=== PATIENT | female | born 1995 | race Caucasian/White ===

== ENCOUNTER 2018-02-23 15:16 | Inpatient (IN) | payer OTHER ==
[2018-02-23 15:19] VITALS: BMI 23.1
--- NOTE | 2018-02-23 18:35 | HP ---
COWS - Scale Resting Pulse: 1= [place] 81-100 Sweatin= Chills/Flushing Restless Observation: 1= Difficult to Sit Still Pupil Size: 0= Normal to Room Light Bone or Joint Aches: 2= Severe Diffuse Aches Runny Nose/ Eye Tearin= Runny Nose/Eyes GI Upset > 30mins: 2= Nausea/Diarrhea Tremor Observation: 2= Slight Tremor Visible Yawning Observation: 1= 1-2x During Session Anxiety or Irritability: 2=Irritable/Anxious Goose Flesh Skin: 3=Piloerection COWS Score: 17 Admission ROS BHS - HPI Chief Complaint: I'm here because Im tired and I want to stop doing this stuff over and over again. Allergies/Adverse Reactions: Allergies Allergy/AdvReac Type Severity Reaction Status Date / Time Penicillins Allergy Hives Verified 02/23/18 18:50 History of Present Illness: 22 year old female with heroine and benzodiazepine dependence presents for detox. This is her first treatment at [facility]. Her last detox was last month at [facility] Exam Limitations: No Limitations - Ebola screening Have you traveled outside of the country in the last 21 days: No (N) Have you had contact with anyone from an Ebola affected area: No Have you been sick,other than usual withdrawal symptoms: No Do you have a fever: No - Review of Systems Constitutional: Chills, Loss of Appetite EENT: reports: Nose Congestion Respiratory: reports: Cough (smoke related) Cardiac: reports: No Symptoms Reported GI: reports: Nausea, Poor Appetite, Poor Fluid Intake, Abdominal cramping : reports: No Symptoms Reported Musculoskeletal: reports: Back Pain, Joint Pain, Muscle Pain Integumentary: reports: No Symptoms Reported Neuro: reports: Headache, Tremors Endocrine: reports: No Symptoms Reported Hematology: reports: No Symptoms Reported Psychiatric: reports: Anxious, Depressed Other Systems: Reviewed and Negative Patient History - Patient Medical History Hx Anemia: No Hx Asthma: No Hx Chronic Obstructive Pulmonary Disease (COPD): No Hx Cancer: No Hx Cardiac Disorders: No Hx Congestive Heart Failure: No Hx Hypertension: No Hx Hypercholesterolemia: No Hx Pacemaker: No HX Cerebrovascular Accident: No Hx Seizures: No Hx Dementia: No Hx Diabetes: No Hx Gastrointestinal Disorders: No Hx Liver Disease: No Hx Genitourinary Disorders: No Hx Sexually Transmitted Disorders: No Hx Renal Disease (ESRD): No Hx Thyroid Disease: No Hx Human Immunodeficiency Virus (HIV): No Hx Hepatitis C: No Hx Depression: Yes Hx Suicide Attempt: Yes (6 yrs ago) Hx Bipolar Disorder: No Hx Schizophrenia: No - Patient Surgical History Past Surgical History: No - PPD History Previous Implant?: Yes Documented Results: Negative w/o proof Implanted On Prior R Admission?: No PPD to be Administered?: Yes - Reproductive History Patient is a Female of Child Bearing Age (11 -55 yrs old): Yes Last Menstrual Period: 01/02/18 LMP comment: Reports irregular cycle Patient : No - Smoking Cessation Smoking history: Current every day smoker Have you smoked in the past 12 months: Yes Aproximately how many cigarettes per day: 12 Hx Chewing Tobacco Use: No Initiated information on smoking cessation: Yes 'Breaking Loose' booklet given: 02/23/18 - Substance & Tx. History Hx Alcohol Use: No Substance Use Type: Cocaine, Heroin, Tranquilizers - Substances Abused Alprazolam (Xanax) Route: Oral Frequency: Daily Amount used: 6mg Age of first use: 17 Date of Last Use: 02/22/18 Heroin Route: Injection Frequency: Daily Amount used: 2 grams Age of first use: 17 Date of Last Use: 02/22/18 Cocaine Route: Injection Frequency: 3-6 times per week Amount used: 1 gram Age of first use: 17 Date of Last Use: 02/17/18 Family Disease History - Family Disease History Family Disease History: Other: Father (alcoholic) Admission Physical Exam BHS - Vital Signs Vital Signs: Vital Signs - 24 hr 02/23/18 15:18 Temperature 98.1 F Pulse Rate 81 Respiratory 18 Rate Blood Pressure 118/67 - Physical General Appearance: Yes: No Apparent Distress, Sweating, Anxious HEENTM: Yes: Nasal Congestion, Other (missing one tooth) Respiratory: Yes: Chest Non-Tender, Lungs Clear, Normal Breath Sounds, No Respiratory Distress, No Accessory Muscle Use Neck: Yes: No masses,lesions,Nodules, Supple Breast: Yes: Breast Exam Deferred Cardiology: Yes: Regular Rate, S1, S2 Abdominal: Yes: Normal Bowel Sounds, Non Tender, Soft Genitourinary: Yes: Within Normal Limits Back: Yes: Normal Inspection Musculoskeletal: Yes: full range of Motion, Muscle Pain Extremities: Yes: Tremors Neurological: Yes: Normal Mood/Affect, Normal Response Integumentary: Yes: Track Ricci (both arms and neck) Lymphatic: Yes: Within Normal Limits - Diagnostic (1) Heroin dependence Current Visit: Yes Status: Acute (2) Tranquilizer abuse Current Visit: Yes Status: Acute (3) Nicotine dependence Current Visit: Yes Status: Acute Qualifiers: Nicotine product type: cigarettes Substance use status: uncomplicated Qualified Code(s): F17.210 - Nicotine dependence, cigarettes, uncomplicated (4) Cocaine abuse Current Visit: Yes Status: Acute Cleared for Admission [facility] - Detox or Rehab [facility] Level of Care: Medically Managed Detox Regimen/Protocol: Methadone/Valium S Breath Alcohol Content Breath Alcohol Content: 0 Urine Pregancy Test - Result Urine Test Results: Negative- NO Line Present Urine Drug Screen - Results Drug Screen Negative: No Urine Drug Screen Results: OPI-Opiates, BZO-Benzodiazepines, MTD-Methadone, TCA- Tricyclic Antidepress
[2018-02-23] MEDS ORDERED: ACETAMINOPHEN 325 MG TABLET (FP) PO PRN (18:51)
[2018-02-23] MEDS ORDERED: LOPERAMIDE HCL 2 MG CAPSULE PO PRN (18:51)
[2018-02-23] MEDS ORDERED: diazePAM 5 MG TABLET PO ONE (18:51)
[2018-02-23] MEDS ORDERED: P-EPHED 60MG/TRIPROLIDI 2.5MG TABLET PO PRN (18:51)
[2018-02-23] MEDS ORDERED: MAGNESIUM CITRATE 300 ML BOTTLE PO PRN (18:51)
[2018-02-23] MEDS ORDERED: METHADONE HCL 10 MG TABLET (FOR DETOX USE ONLY) PO ONE ×2 (18:51→23:00)
[2018-02-23] MEDS ORDERED: MAG HYDROX/AL HYDROX/SIMETH 30 ML UNIT-DOSE CUP PO PRN (18:51)
[2018-02-23] MEDS ORDERED: MENTHOL/PHENOL 1 EACH UD MM PRN (18:51)
[2018-02-23] MEDS ORDERED: MAGNESIUM HYDROX 2400MG/30ML ORAL SUSPENSION 30 ML CUP PO PRN (18:51)
[2018-02-23] MEDS ORDERED: guaiFENesin/D-METHORPHAN HB 10 ML UNIT-DOSE CUPS PO PRN (18:51)
[2018-02-23] MEDS ORDERED: IBUPROFEN 400 MG TABLET (FP) PO PRN (18:51)
[2018-02-23] MEDS ORDERED: METHADONE HCL 10 MG TABLET (FOR DETOX USE ONLY) ONE (21:08)
[2018-02-23] MEDS: THIAMINE HCL 100 MG TABLET (FP) PO SCH (21:13)
[2018-02-23] MEDS: NICOTINE 14 MG/24 HOURS TOPICAL PATCH TD SCH (21:23)
[2018-02-23] MEDS: diazePAM 5 MG TABLET PO SCH (22:48)
[2018-02-23 23:23] LABS: URINE APPEARANCE SLCLOUDY; URINE BILIRUBIN NEGATIVE (<2.0 mg/dL); URINE BLOOD NEGATIVE (NEGATIVE); URINE COLOR YELLOW; URINE GLUCOSE (UA) NEGATIVE (NEGATIVE); URINE KETONE NEGATIVE (NEGATIVE); URINE NITRITE NEGATIVE (NEGATIVE); URINE PROTEIN NEGATIVE (NEGATIVE); URINE UROBILINOGEN NEGATIVE mg/dL (0.2-1.0)
[2018-02-23 23:25] LABS: URINE LEUK ESTERASE 2+ (NEGATIVE)
[2018-02-23 23:30] LABS: EPI CELLS MANY /HPF (FEW); URINE MUCUS RARE
[2018-02-24] MEDS: diazePAM 5 MG TABLET PO SCH ×3 (05:52→22:04)
--- NOTE | 2018-02-24 09:22 | EKG ---
Test Reason : Blood Pressure : / mmHG Vent. Rate : 070 BPM Atrial Rate : 070 BPM P-R Int : 126 ms QRS Dur : 086 ms QT Int : 410 ms P-R-T Axes : 032 072 053 degrees QTc Int : 442 ms NORMAL SINUS RHYTHM NORMAL ECG NO PREVIOUS ECGS AVAILABLE Confirmed by AMAIRANI MORALES, DENIZ ([id number]) on 02/24/2018 9:22:19 AM Referred By: Confirmed By:DENIZ BALES MD
[2018-02-24 09:56] LABS: HEMATOCRIT 37.9 % (32.4-45.2); HEMOGLOBIN 12.7 GM/dL (10.7-15.3); MCH 29.4 pg (25.7-33.7); MCHC 33.6 g/dl (32.0-36.0); MEAN CELL VOLUME 87.5 fl (80-96); MEAN PLT VOLUME 7.5 fl (7.5-11.1); PLATELET COUNT 322 K/MM3 (134-434); RBC 4.34 M/mm3 (3.60-5.2); RDW 13.2 % (11.6-15.6); WHITE BLOOD COUNT 7.9 K/mm3 (4.0-10.0)
[2018-02-24] MEDS ORDERED: METHADONE HCL 10 MG TABLET (FOR DETOX USE ONLY) PO SCH (10:00)
[2018-02-24 10:05] LABS: CHLORIDE 104 mmol/L (98-107); POTASSIUM 4.2 mmol/L (3.5-5.1); SODIUM 139 mmol/L (136-145)
[2018-02-24 10:13] LABS: ALBUMIN 3.4 g/dl (3.4-5.0); ALK PHOS 97 U/L (45-117); ANION GAP 6 (8-16); BILIRUBIN,TOTAL 0.1 mg/dL (0.2-1.0); BLOOD UREA NITROGEN 11 mg/dL (7-18); CALCIUM 8.5 mg/dL (8.5-10.1); CO2 29 mmol/L (21-32); CREATININE 0.7 mg/dL (0.55-1.02); GLUCOSE,RANDOM 98 mg/dL (74-106); SGOT/AST 140 U/L (15-37); SGPT/ALT 176 U/L (12-78); TOT PROT 6.6 g/dl (6.4-8.2)
[2018-02-24] MEDS: PRENATAL VITAMINS W/ FOLIC ACID TABLET (FP) PO SCH (10:13)
[2018-02-24] MEDS: NICOTINE 14 MG/24 HOURS TOPICAL PATCH TD SCH (10:14)
[2018-02-24] MEDS: diazePAM 5 MG TABLET PO PRN ×3 (10:15→21:23)
[2018-02-24] MEDS: NICOTINE POLACRILEX 2 MG GUM BC PRN ×2 (10:17→12:47)
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
--- NOTE | 2018-02-24 13:58 | PN ---
S COWS - Scale Resting Pulse: 0= [place] 80 or Below Sweatin= Chills/Flushing Restless Observation: 1= Difficult to Sit Still Pupil Size: 1= Pupils >than Normal Bone or Joint Aches: 2= Severe Diffuse Aches Runny Nose/ Eye Tearin= Nasal Congestion GI Upset > 30mins: 2= Nausea/Diarrhea Tremor Observation of Outstretched Hands: 1= Tremor Newcomb, Not Seen Yawning Observation: 2= >3x During Session Anxiety or Irritability: 2=Irritable/Anxious Goose Flesh Skin: 3=Piloerection COWS Score: 16 S Progress Note (SOAP) Subjective: joint pain muscle ache sweat tremor restlessness anxiety Objective: 02/24/18 13:59 Vital Signs Temperature 96.4 F L 02/24/18 09:50 Pulse Rate 66 02/24/18 09:50 Respiratory Rate 18 02/24/18 09:50 Blood Pressure 103/59 02/24/18 09:50 O2 Sat by Pulse Oximetry (%) Laboratory Last Values WBC 7.9 K/mm3 (4.0-10.0) 02/24/18 07:30 RBC 4.34 M/mm3 (3.60-5.2) 02/24/18 07:30 Hgb 12.7 GM/dL (10.7-15.3) 02/24/18 07:30 Hct 37.9 % (32.4-45.2) 02/24/18 07:30 MCV 87.5 fl (80-96) 02/24/18 07:30 MCH 29.4 pg (25.7-33.7) 02/24/18 07:30 MCHC 33.6 g/dl (32.0-36.0) 02/24/18 07:30 RDW 13.2 % (11.6-15.6) 02/24/18 07:30 Plt Count 322 K/MM3 (134-434) 02/24/18 07:30 MPV 7.5 fl (7.5-11.1) 02/24/18 07:30 Sodium 139 mmol/L (136-145) 02/24/18 07:30 Potassium 4.2 mmol/L (3.5-5.1) 02/24/18 07:30 Chloride 104 mmol/L (98-107) 02/24/18 07:30 Carbon Dioxide 29 mmol/L (21-32) 02/24/18 07:30 Anion Gap 6 (8-16) L 02/24/18 07:30 BUN 11 mg/dL (7-18) 02/24/18 07:30 Creatinine 0.7 mg/dL (0.55-1.02) 02/24/18 07:30 Creat Clearance w eGFR > 60 (>60) 02/24/18 07:30 Random Glucose 98 mg/dL (74-106) 02/24/18 07:30 Calcium 8.5 mg/dL (8.5-10.1) 02/24/18 07:30 Total Bilirubin 0.1 mg/dL (0.2-1.0) L 02/24/18 07:30 AST 140 U/L (15-37) H 02/24/18 07:30 ALT 176 U/L (12-78) H 02/24/18 07:30 Alkaline Phosphatase 97 U/L (45-117) 02/24/18 07:30 Total Protein 6.6 g/dl (6.4-8.2) 02/24/18 07:30 Albumin 3.4 g/dl (3.4-5.0) 02/24/18 07:30 Urine Color Yellow 02/23/18 21:00 Urine Appearance Slcloudy 02/23/18 21:00 Urine pH 7.0 (5.0-8.0) 02/23/18 21:00 Ur Specific [place] 1.021 (1.001-1.035) 02/23/18 21:00 Urine Protein Negative (NEGATIVE) 02/23/18 21:00 Urine Glucose (UA) Negative (NEGATIVE) 02/23/18 21:00 Urine Ketones Negative (NEGATIVE) 02/23/18 21:00 Urine Blood Negative (NEGATIVE) 02/23/18 21:00 Urine Nitrite Negative (NEGATIVE) 02/23/18 21:00 Urine Bilirubin Negative (<2.0 mg/dL) 02/23/18 21:00 Urine Urobilinogen Negative mg/dL (0.2-1.0) 02/23/18 21:00 Ur Leukocyte Esterase 2+ (NEGATIVE) H 02/23/18 21:00 Urine WBC (Auto) 101 /hpf (3-5) 02/23/18 21:00 Urine RBC (Auto) 16 /hpf (0-3) 02/23/18 21:00 Ur Epithelial Cells Many /HPF (FEW) 02/23/18 21:00 Urine Mucus Rare 02/23/18 21:00 RPR Titer Nonreactive (NONREACTIVE) 02/24/18 07:30 HIV 1&2 Antibody Screen Negative 02/24/18 07:30 HIV P24 Antigen Negative 02/24/18 07:30 Assessment: 02/24/18 14:02 withdrawal sx Plan: continue detox
[2018-02-24] MEDS: QUEtiapine FUMARATE 100 MG TABLET (FP) PO SCH (22:04)
[2018-02-24] MEDS: THIAMINE HCL 100 MG TABLET (FP) PO SCH (22:04)
[2018-02-25] MEDS: diazePAM 5 MG TABLET PO PRN ×3 (05:29→18:22)
--- NOTE | 2018-02-25 09:38 | PN ---
S CIWA - CIWA Score Nausea/Vomitin Muscle Tremors: 3 Anxiety: 3 Agitation: 3 Paroxysmal Sweats: 1-Minimal Palms Moist Orientation: 0-Oriented Tacttile Disturbances: 1-Very Mild Itch/Numbness Auditory Disturbances: 1-Very Mild Visual Disturbances: 0-None Headache: 2-Mild CIWA-Ar Total Score: 17 BHS COWS - Scale Resting Pulse: 0= [place] 80 or Below Sweatin= Chills/Flushing Restless Observation: 3= Extraneous Movement Pupil Size: 1= Pupils >than Normal Bone or Joint Aches: 2= Severe Diffuse Aches Runny Nose/ Eye Tearin= Runny Nose/Eyes GI Upset > 30mins: 2= Nausea/Diarrhea Tremor Observation of Outstretched Hands: 2= Slight Tremor Visible Yawning Observation: 2= >3x During Session Anxiety or Irritability: 2=Irritable/Anxious Goose Flesh Skin: 0=Smooth Skin COWS Score: 17 S Progress Note (SOAP) Subjective: ALERT,IRRITABLE,ANXIOUS,INTERRUPTED SLEEP,TREMOR,PAIN IN THE BOSY AND BACK Objective: 02/25/18 09:36 Vital Signs Temperature 97.2 F L 02/25/18 06:09 Pulse Rate 55 L 02/25/18 06:09 Respiratory Rate 16 02/25/18 06:09 Blood Pressure 102/56 02/25/18 06:09 O2 Sat by Pulse Oximetry (%) 02/25/18 09:37 Laboratory Last Values WBC 7.9 K/mm3 (4.0-10.0) 02/24/18 07:30 RBC 4.34 M/mm3 (3.60-5.2) 02/24/18 07:30 Hgb 12.7 GM/dL (10.7-15.3) 02/24/18 07:30 Hct 37.9 % (32.4-45.2) 02/24/18 07:30 MCV 87.5 fl (80-96) 02/24/18 07:30 MCH 29.4 pg (25.7-33.7) 02/24/18 07:30 MCHC 33.6 g/dl (32.0-36.0) 02/24/18 07:30 RDW 13.2 % (11.6-15.6) 02/24/18 07:30 Plt Count 322 K/MM3 (134-434) 02/24/18 07:30 MPV 7.5 fl (7.5-11.1) 02/24/18 07:30 Sodium 139 mmol/L (136-145) 02/24/18 07:30 Potassium 4.2 mmol/L (3.5-5.1) 02/24/18 07:30 Chloride 104 mmol/L (98-107) 02/24/18 07:30 Carbon Dioxide 29 mmol/L (21-32) 02/24/18 07:30 Anion Gap 6 (8-16) L 02/24/18 07:30 BUN 11 mg/dL (7-18) 02/24/18 07:30 Creatinine 0.7 mg/dL (0.55-1.02) 02/24/18 07:30 Creat Clearance w eGFR > 60 (>60) 02/24/18 07:30 Random Glucose 98 mg/dL (74-106) 02/24/18 07:30 Calcium 8.5 mg/dL (8.5-10.1) 02/24/18 07:30 Total Bilirubin 0.1 mg/dL (0.2-1.0) L 02/24/18 07:30 AST 140 U/L (15-37) H 02/24/18 07:30 ALT 176 U/L (12-78) H 02/24/18 07:30 Alkaline Phosphatase 97 U/L (45-117) 02/24/18 07:30 Total Protein 6.6 g/dl (6.4-8.2) 02/24/18 07:30 Albumin 3.4 g/dl (3.4-5.0) 02/24/18 07:30 Urine Color Yellow 02/23/18 21:00 Urine Appearance Slcloudy 02/23/18 21:00 Urine pH 7.0 (5.0-8.0) 02/23/18 21:00 Ur Specific [place] 1.021 (1.001-1.035) 02/23/18 21:00 Urine Protein Negative (NEGATIVE) 02/23/18 21:00 Urine Glucose (UA) Negative (NEGATIVE) 02/23/18 21:00 Urine Ketones Negative (NEGATIVE) 02/23/18 21:00 Urine Blood Negative (NEGATIVE) 02/23/18 21:00 Urine Nitrite Negative (NEGATIVE) 02/23/18 21:00 Urine Bilirubin Negative (<2.0 mg/dL) 02/23/18 21:00 Urine Urobilinogen Negative mg/dL (0.2-1.0) 02/23/18 21:00 Ur Leukocyte Esterase 2+ (NEGATIVE) H 02/23/18 21:00 Urine WBC (Auto) 101 /hpf (3-5) 02/23/18 21:00 Urine RBC (Auto) 16 /hpf (0-3) 02/23/18 21:00 Ur Epithelial Cells Many /HPF (FEW) 02/23/18 21:00 Urine Mucus Rare 02/23/18 21:00 RPR Titer Nonreactive (NONREACTIVE) 02/24/18 07:30 HIV 1&2 Antibody Screen Negative 02/24/18 07:30 HIV P24 Antigen Negative 02/24/18 07:30 Assessment: 02/25/18 09:37 WITHDRAWAL SYMPTOM Plan: CONTINUE DETOX,REPEAT UA AND URINE FOR C/S R/O UTI
[2018-02-25] MEDS: PRENATAL VITAMINS W/ FOLIC ACID TABLET (FP) PO SCH (10:12)
[2018-02-25] MEDS: diazePAM 5 MG TABLET PO SCH ×2 (10:13→22:11)
[2018-02-25] MEDS: NICOTINE 14 MG/24 HOURS TOPICAL PATCH TD SCH (10:13)
[2018-02-25] MEDS: METHADONE HCL 5 MG TABLET (FOR DETOX USE ONLY) PO SCH (10:13)
[2018-02-25] MEDS: NICOTINE POLACRILEX 2 MG GUM BC PRN (10:17)
[2018-02-25 16:37] LABS: URINE APPEARANCE SLCLOUDY; URINE BILIRUBIN NEGATIVE (<2.0 mg/dL); URINE BLOOD NEGATIVE (NEGATIVE); URINE COLOR YELLOW; URINE GLUCOSE (UA) NEGATIVE (NEGATIVE); URINE KETONE NEGATIVE (NEGATIVE); URINE NITRITE NEGATIVE (NEGATIVE); URINE PROTEIN NEGATIVE (NEGATIVE); URINE UROBILINOGEN NEGATIVE mg/dL (0.2-1.0)
[2018-02-25 16:57] LABS: URINE LEUK ESTERASE 3+ (NEGATIVE)
[2018-02-25 17:00] LABS: EPI CELLS RARE /HPF (FEW); URINE BACTERIA RARE /hpf (NONE SEEN); URINE HYALINE CAST 2 /lpf; URINE MUCUS RARE
[2018-02-25] MEDS: QUEtiapine FUMARATE 100 MG TABLET (FP) PO SCH (22:11)
[2018-02-25] MEDS: THIAMINE HCL 100 MG TABLET (FP) PO SCH (22:13)
[2018-02-26] MEDS: diazePAM 5 MG TABLET PO PRN ×3 (08:47→17:09)
--- NOTE | 2018-02-26 09:36 | PN ---
S Progress Note (SOAP) Subjective: ALERT,IRRITABLE,ANXIOUS,INTERRUPTED SLEEP,PAIN IN THE BODY Objective: 02/26/18 09:32 Vital Signs Temperature 98.1 F 02/26/18 06:11 Pulse Rate 66 02/26/18 06:11 Respiratory Rate 16 02/26/18 06:11 Blood Pressure 112/65 02/26/18 06:11 O2 Sat by Pulse Oximetry (%) 02/26/18 09:33 Laboratory Last Values WBC 7.9 K/mm3 (4.0-10.0) 02/24/18 07:30 RBC 4.34 M/mm3 (3.60-5.2) 02/24/18 07:30 Hgb 12.7 GM/dL (10.7-15.3) 02/24/18 07:30 Hct 37.9 % (32.4-45.2) 02/24/18 07:30 MCV 87.5 fl (80-96) 02/24/18 07:30 MCH 29.4 pg (25.7-33.7) 02/24/18 07:30 MCHC 33.6 g/dl (32.0-36.0) 02/24/18 07:30 RDW 13.2 % (11.6-15.6) 02/24/18 07:30 Plt Count 322 K/MM3 (134-434) 02/24/18 07:30 MPV 7.5 fl (7.5-11.1) 02/24/18 07:30 Sodium 139 mmol/L (136-145) 02/24/18 07:30 Potassium 4.2 mmol/L (3.5-5.1) 02/24/18 07:30 Chloride 104 mmol/L (98-107) 02/24/18 07:30 Carbon Dioxide 29 mmol/L (21-32) 02/24/18 07:30 Anion Gap 6 (8-16) L 02/24/18 07:30 BUN 11 mg/dL (7-18) 02/24/18 07:30 Creatinine 0.7 mg/dL (0.55-1.02) 02/24/18 07:30 Creat Clearance w eGFR > 60 (>60) 02/24/18 07:30 Random Glucose 98 mg/dL (74-106) 02/24/18 07:30 Calcium 8.5 mg/dL (8.5-10.1) 02/24/18 07:30 Total Bilirubin 0.1 mg/dL (0.2-1.0) L 02/24/18 07:30 AST 140 U/L (15-37) H 02/24/18 07:30 ALT 176 U/L (12-78) H 02/24/18 07:30 Alkaline Phosphatase 97 U/L (45-117) 02/24/18 07:30 Total Protein 6.6 g/dl (6.4-8.2) 02/24/18 07:30 Albumin 3.4 g/dl (3.4-5.0) 02/24/18 07:30 Urine Color Yellow 02/25/18 11:30 Urine Appearance Slcloudy 02/25/18 11:30 Urine pH 6.0 (5.0-8.0) 02/25/18 11:30 Ur Specific [place] 1.019 (1.001-1.035) 02/25/18 11:30 Urine Protein Negative (NEGATIVE) 02/25/18 11:30 Urine Glucose (UA) Negative (NEGATIVE) 02/25/18 11:30 Urine Ketones Negative (NEGATIVE) 02/25/18 11:30 Urine Blood Negative (NEGATIVE) 02/25/18 11:30 Urine Nitrite Negative (NEGATIVE) 02/25/18 11:30 Urine Bilirubin Negative (<2.0 mg/dL) 02/25/18 11:30 Urine Urobilinogen Negative mg/dL (0.2-1.0) 02/25/18 11:30 Ur Leukocyte Esterase 3+ (NEGATIVE) H 02/25/18 11:30 Urine WBC (Auto) 57 /hpf (3-5) 02/25/18 11:30 Urine RBC (Auto) 13 /hpf (0-3) 02/25/18 11:30 Ur Epithelial Cells Rare /HPF (FEW) 02/25/18 11:30 Urine Bacteria Rare /hpf (NONE SEEN) 02/25/18 11:30 Hyaline Casts 2 /lpf 02/25/18 11:30 Urine Mucus Rare 02/25/18 11:30 RPR Titer Nonreactive (NONREACTIVE) 02/24/18 07:30 HIV 1&2 Antibody Screen Negative 02/24/18 07:30 HIV P24 Antigen Negative 02/24/18 07:30 Laboratory Results - last 24 hr 02/25/18 11:30 Urine Color Yellow Urine Appearance Slcloudy Urine pH 6.0 Ur Specific [place] 1.019 Urine Protein Negative Urine Glucose (UA) Negative Urine Ketones Negative Urine Blood Negative Urine Nitrite Negative Urine Bilirubin Negative Urine Urobilinogen Negative Ur Leukocyte Esterase 3+ H Urine WBC (Auto) 57 Urine RBC (Auto) 13 Ur Epithelial Cells Rare Urine Bacteria Rare Hyaline Casts 2 Urine Mucus Rare Assessment: 02/26/18 09:35 WITHDRAWAL SYMPTOM Plan: CONTINUE DETOX,BACTRIM DS 1 TAB PO BID FOR 7 DAYS FOR UTI,URINE FOR S/C PENDING
[2018-02-26] MEDS ORDERED: SULFAMETHOXAZOLE/TRIMETHOPRIM 800MG/160MG D.S. TABLET PO SCH (10:00)
[2018-02-26] MEDS: METHADONE HCL 5 MG TABLET (FOR DETOX USE ONLY) PO SCH (10:08)
[2018-02-26] MEDS: PRENATAL VITAMINS W/ FOLIC ACID TABLET (FP) PO SCH (10:08)
[2018-02-26] MEDS: diazePAM 5 MG TABLET PO SCH ×2 (10:09→22:07)
[2018-02-26] MEDS: NICOTINE 14 MG/24 HOURS TOPICAL PATCH TD SCH (12:20)
[2018-02-26] MEDS: NICOTINE POLACRILEX 2 MG GUM BC PRN ×4 (12:57→21:35)
--- NOTE | 2018-02-26 13:41 | PN ---
[facility] Progress Note Note: PATIENT STATED THAT SHE IS ALLERGIC TO AMOXICILLIN,ANTIBIOTIC WITH MYCIN, CLINDAMYCIN,PENICILLIN AND BACRIM AND FOR GOT TO TELL THE STAFF GOT ONE DOSE OF BACTRIM DS THIS MORNING HAS LOCAIZIED RASH OVER THE RIGHT WRIST EXPLAINED TO PATIENT FOR THE IMPORTANT OF NOTIFIED THE STAFF OF THE ALLERGY D/C BACTRIM URINE FOR C/S PENDING PATIENT WOULD LIKE TO START ON ANTIBIOTICS DURING WAITING AGREED TO BE ON LEVAQUIN 500 MGS PO DAILY FOR 7 DASY HYDROCOTISONE CREAM RIGHT WRIST BID FRANKLYN CRUZ MONITORING NO SWELLING OF FACE,NO PROBLEM WITH BREATHING,AMBULATION OK,NO SWELLING OF FACE AND LIP
[2018-02-26 16:51] LABS: URINE APPEARANCE CLOUDY; URINE BILIRUBIN NEGATIVE (<2.0 mg/dL); URINE BLOOD NEGATIVE (NEGATIVE); URINE COLOR YELLOW; URINE GLUCOSE (UA) NEGATIVE (NEGATIVE); URINE KETONE NEGATIVE (NEGATIVE); URINE NITRITE NEGATIVE (NEGATIVE); URINE PROTEIN NEGATIVE (NEGATIVE); URINE UROBILINOGEN NEGATIVE mg/dL (0.2-1.0)
[2018-02-26 17:36] LABS: URINE LEUK ESTERASE 3+ (NEGATIVE)
[2018-02-26 18:08] LABS: EPI CELLS FEW /HPF (FEW); URINE BACTERIA RARE /hpf (NONE SEEN); URINE MUCUS RARE
[2018-02-26] MEDS: THIAMINE HCL 100 MG TABLET (FP) PO SCH (22:07)
[2018-02-26] MEDS: MELATONIN 5 MG TABLETS PO PRN (22:07)
[2018-02-26] MEDS: QUEtiapine FUMARATE 100 MG TABLET (FP) PO SCH (22:07)
[2018-02-26] MEDS: HYDROCORTISONE 0.5% TOPICAL CREAM 30 GM TUBE TP SCH (23:35)
--- NOTE | 2018-02-27 08:53 | PN ---
S Progress Note (SOAP) Subjective: ALERT,IRRITABLE,INTERRUPTED SLEEP,RASH RIGHT WRIST ALMOST SUBSIDED Objective: 02/27/18 08:52 Vital Signs Temperature 97.0 F L 02/27/18 05:58 Pulse Rate 68 02/27/18 05:58 Respiratory Rate 18 02/27/18 05:58 Blood Pressure 110/61 02/27/18 05:58 O2 Sat by Pulse Oximetry (%) Laboratory Results - last 24 hr 02/26/18 10:00 Urine Color Yellow Urine Appearance Cloudy Urine pH 5.0 Ur Specific [place] 1.016 Urine Protein Negative Urine Glucose (UA) Negative Urine Ketones Negative Urine Blood Negative Urine Nitrite Negative Urine Bilirubin Negative Urine Urobilinogen Negative Ur Leukocyte Esterase 3+ H Urine WBC (Auto) 83 Urine RBC (Auto) 60 Ur Epithelial Cells Few Urine Bacteria Rare Urine Mucus Rare 02/27/18 08:54 URINE FOR C/S NO GROWTH Assessment: 02/27/18 08:55 WITHDRAWAL SYMPTOM Plan: CONTINUE DETOX,DISCHARGE IN AM,WILL CONTINUE LEVAQUIN 500 MGS PO DAILY FOR 5 MORE DAYS
[2018-02-27] MEDS ORDERED: METHADONE HCL 10 MG TABLET (FOR DETOX USE ONLY) PO SCH (10:00)
[2018-02-27] MEDS ORDERED: diazePAM 5 MG TABLET PO SCH (10:00)
[2018-02-27] MEDS: HYDROCORTISONE 0.5% TOPICAL CREAM 30 GM TUBE TP SCH ×2 (10:07→22:09)
[2018-02-27] MEDS: PRENATAL VITAMINS W/ FOLIC ACID TABLET (FP) PO SCH (10:07)
[2018-02-27] MEDS: NICOTINE POLACRILEX 2 MG GUM BC PRN ×2 (10:08→14:46)
[2018-02-27] MEDS: NICOTINE 14 MG/24 HOURS TOPICAL PATCH TD SCH (10:08)
[2018-02-27] MEDS: hydrOXYzine PAMOATE 50 MG CAPSULE (FP) PO PRN ×2 (14:46→20:18)
[2018-02-27] MEDS: QUEtiapine FUMARATE 100 MG TABLET (FP) PO SCH (22:09)
[2018-02-27] MEDS: MELATONIN 5 MG TABLETS PO PRN (22:10)
[2018-02-27] MEDS: THIAMINE HCL 100 MG TABLET (FP) PO SCH (22:11)
[2018-02-28] MEDS ORDERED: METHADONE HCL 5 MG TABLET (FOR DETOX USE ONLY) PO SCH (06:00)
[2018-02-28 06:06] VITALS: BP 109/64; PULSE 84; TEMP 97.7
[2018-02-28] MEDS: NICOTINE POLACRILEX 2 MG GUM BC PRN ×2 (08:14→11:16)
--- NOTE | 2018-02-28 08:47 | PN ---
S Progress Note (SOAP) Subjective: ALERT,NO COMPLAINT Objective: 02/28/18 08:46 Vital Signs Temperature 97.7 F 02/28/18 06:00 Pulse Rate 84 02/28/18 06:00 Respiratory Rate 16 02/28/18 06:00 Blood Pressure 109/64 02/28/18 06:00 O2 Sat by Pulse Oximetry (%) Assessment: 02/28/18 08:46 DETOX COMPLETED,NO WITHDRAWAL SYMPTOM Plan: DISCHARGE TODAY,FOLLOW UP WITH AFTER CARE PROGRAM ARRANGEMENT
--- NOTE | 2018-02-28 08:54 | DS ---
[facility] Detox Discharge Summary Admission Date: 02/23/18 Discharge Date: 02/28/18 - History Present History: Cocaine Dependence, Opioid Dependence, Sedative Dependence Additional Comments: FOLLOW UP WITH AFTER CARE PROGRAM ARRANGEMENT Pertinent Past History: NICOTINE DEPENDENCE - Physical Exam Results Vital Signs: Vital Signs Temperature 97.7 F 02/28/18 06:00 Pulse Rate 84 02/28/18 06:00 Respiratory Rate 16 02/28/18 06:00 Blood Pressure 109/64 02/28/18 06:00 O2 Sat by Pulse Oximetry (%) Pertinent Admission Physical Exam Findings: WITHDRAWAL SIGNS AND SYMPTOM Vital Signs Temperature 97.7 F 02/28/18 06:00 Pulse Rate 84 02/28/18 06:00 Respiratory Rate 16 02/28/18 06:00 Blood Pressure 109/64 02/28/18 06:00 O2 Sat by Pulse Oximetry (%) Laboratory Last Values WBC 7.9 K/mm3 (4.0-10.0) 02/24/18 07:30 RBC 4.34 M/mm3 (3.60-5.2) 02/24/18 07:30 Hgb 12.7 GM/dL (10.7-15.3) 02/24/18 07:30 Hct 37.9 % (32.4-45.2) 02/24/18 07:30 MCV 87.5 fl (80-96) 02/24/18 07:30 MCH 29.4 pg (25.7-33.7) 02/24/18 07:30 MCHC 33.6 g/dl (32.0-36.0) 02/24/18 07:30 RDW 13.2 % (11.6-15.6) 02/24/18 07:30 Plt Count 322 K/MM3 (134-434) 02/24/18 07:30 MPV 7.5 fl (7.5-11.1) 02/24/18 07:30 Sodium 139 mmol/L (136-145) 02/24/18 07:30 Potassium 4.2 mmol/L (3.5-5.1) 02/24/18 07:30 Chloride 104 mmol/L (98-107) 02/24/18 07:30 Carbon Dioxide 29 mmol/L (21-32) 02/24/18 07:30 Anion Gap 6 (8-16) L 02/24/18 07:30 BUN 11 mg/dL (7-18) 02/24/18 07:30 Creatinine 0.7 mg/dL (0.55-1.02) 02/24/18 07:30 Creat Clearance w eGFR > 60 (>60) 02/24/18 07:30 Random Glucose 98 mg/dL (74-106) 02/24/18 07:30 Calcium 8.5 mg/dL (8.5-10.1) 02/24/18 07:30 Total Bilirubin 0.1 mg/dL (0.2-1.0) L 02/24/18 07:30 AST 140 U/L (15-37) H 02/24/18 07:30 ALT 176 U/L (12-78) H 02/24/18 07:30 Alkaline Phosphatase 97 U/L (45-117) 02/24/18 07:30 Total Protein 6.6 g/dl (6.4-8.2) 02/24/18 07:30 Albumin 3.4 g/dl (3.4-5.0) 02/24/18 07:30 Urine Color Yellow 02/26/18 10:00 Urine Appearance Cloudy 02/26/18 10:00 Urine pH 5.0 (5.0-8.0) 02/26/18 10:00 Ur Specific [place] 1.016 (1.001-1.035) 02/26/18 10:00 Urine Protein Negative (NEGATIVE) 02/26/18 10:00 Urine Glucose (UA) Negative (NEGATIVE) 02/26/18 10:00 Urine Ketones Negative (NEGATIVE) 02/26/18 10:00 Urine Blood Negative (NEGATIVE) 02/26/18 10:00 Urine Nitrite Negative (NEGATIVE) 02/26/18 10:00 Urine Bilirubin Negative (<2.0 mg/dL) 02/26/18 10:00 Urine Urobilinogen Negative mg/dL (0.2-1.0) 02/26/18 10:00 Ur Leukocyte Esterase 3+ (NEGATIVE) H 02/26/18 10:00 Urine WBC (Auto) 83 /hpf (3-5) 02/26/18 10:00 Urine RBC (Auto) 60 /hpf (0-3) 02/26/18 10:00 Ur Epithelial Cells Few /HPF (FEW) 02/26/18 10:00 Urine Bacteria Rare /hpf (NONE SEEN) 02/26/18 10:00 Hyaline Casts 2 /lpf 02/25/18 11:30 Urine Mucus Rare 02/26/18 10:00 RPR Titer Nonreactive (NONREACTIVE) 02/24/18 07:30 HIV 1&2 Antibody Screen Negative 02/24/18 07:30 HIV P24 Antigen Negative 02/24/18 07:30 - Treatment Hospital Course: Detox Protocol Followed, Detoxed Safely, Responded well, Discharged Condition Good, Rehab Referral Accepted Patient has Accepted a Rehab Referral to: [facility] - Medication Discharge Medications: Ambulatory Orders Bupropion HCl [Wellbutrin Xl -] 150 mg PO DAILY 02/23/18 Gabapentin [Neurontin] 400 mg PO BID 02/23/18 Quetiapine Fumarate [Seroquel] 100 mg PO HS 02/23/18 levoFLOXacin [Levaquin -] 500 mg PO DAILY@0600 #5 tablet 02/27/18 - Diagnosis (1) Opioid dependence with withdrawal Current Visit: Yes Status: Acute (2) Cocaine dependence Current Visit: Yes Status: Acute (3) Sedative hypnotic or anxiolytic dependence Current Visit: Yes Status: Acute (4) UTI (urinary tract infection) Current Visit: Yes Status: Acute - AMA Did Patient Leave Against Medical Advice: No
[2018-02-28] MEDS: NICOTINE 14 MG/24 HOURS TOPICAL PATCH TD SCH (11:16)
[2018-02-28] MEDS: HYDROCORTISONE 0.5% TOPICAL CREAM 30 GM TUBE TP SCH (11:16)
[2018-02-28] MEDS: PRENATAL VITAMINS W/ FOLIC ACID TABLET (FP) PO SCH (11:16)
[2018-02-28] MEDS: hydrOXYzine PAMOATE 50 MG CAPSULE (FP) PO PRN (11:19)
== END 2018-02-28 13:07 | disposition home or self-care (01) | DRG 773 ==
LOC: YASAS 15:16 → Y6N 19:40
PROVIDERS: ADMIT Internal Medicine; ATTEND Internal Medicine
PROC: HZ2ZZZZ Detoxification Services for Substance Abuse Treatment (ICD-10-PCS; principal; 2018-02-23)
DX: F11.23 Opioid dependence with withdrawal (principal); F13.230 Sedative, hypnotic or anxiolytic dependence with withdrawal, uncomplicated; F14.20 Cocaine dependence, uncomplicated; F17.213 Nicotine dependence, cigarettes, with withdrawal; F33.9 Major depressive disorder, recurrent, unspecified; F19.24 Other psychoactive substance dependence with psychoactive substance-induced mood disorder; N39.0 Urinary tract infection, site not specified; Z91.5 Personal history of self-harm
CPT/HCPCS: 36415; 80053; 81003; 81015; 85027; 86593; 87086; 87389; 93005; 93010

== ENCOUNTER 2018-06-21 22:37 | Inpatient (IN) | payer OTHER ==
[2018-06-22] VITALS: BP 148/90; PULSE 103; TEMP 97.4; BMI 24.6
--- NOTE | 2018-06-22 08:30 | HP ---
Admission [facility] Allergies/Adverse Reactions: Allergies Allergy/AdvReac Type Severity Reaction Status Date / Time clindamycin Allergy Verified 06/21/18 23:46 Penicillins Allergy Hives Verified 06/21/18 23:46 amoxicillin Allergy Uncoded 06/21/18 23:46 bactrim Allergy Uncoded 06/21/18 23:46 - Ebola screening Have you traveled outside of the country in the last 21 days: No (N) Have you had contact with anyone from an Ebola affected area: No Have you been sick,other than usual withdrawal symptoms: No Do you have a fever: No Patient History - Patient Medical History Hx Anemia: No Hx Asthma: No Hx Chronic Obstructive Pulmonary Disease (COPD): No Hx Cancer: No Hx Cardiac Disorders: No Hx Congestive Heart Failure: No Hx Hypertension: No Hx Hypercholesterolemia: No Hx Pacemaker: No HX Cerebrovascular Accident: No Hx Seizures: No Hx Dementia: No Hx Diabetes: No Hx Gastrointestinal Disorders: No Hx Liver Disease: No Hx Genitourinary Disorders: No Hx Sexually Transmitted Disorders: No Hx Renal Disease (ESRD): No Hx Thyroid Disease: No Hx Human Immunodeficiency Virus (HIV): No Hx Hepatitis C: No Hx Depression: Yes Hx Suicide Attempt: Yes (6 yrs ago) Hx Bipolar Disorder: No Hx Schizophrenia: No - Patient Surgical History Past Surgical History: No Hx Neurologic Surgery: No Hx Cataract Extraction: No Hx Cardiac Surgery: No Hx Lung Surgery: No Hx Breast Surgery: No Hx Breast Biopsy: No Hx Abdominal Surgery: No Hx Appendectomy: No Hx Cholecystectomy: No Hx Genitourinary Surgery: No Hx Orthopedic Surgery: No Anesthesia Reaction: No - PPD History Previous Implant?: Yes Documented Results: Negative w/proof Date: 02/25/18 - Reproductive History Last Menstrual Period: 01/02/18 - Smoking Cessation Smoking history: Unknown if ever smoked - Substances Abused Heroin Route: Injection Frequency: Daily Amount used: 60 BAGS Age of first use: 17 Date of Last Use: 06/22/18 Alcohol Route: Oral Frequency: Daily Amount used: LIQUOR- 1/2 PINT, Age of first use: 15 Date of Last Use: 06/22/18 Benzodiazepine (Klonopin) Route: Oral Frequency: Daily Amount used: 6MG Age of first use: 17 Date of Last Use: 06/22/18 Cocaine Route: Injection Frequency: Daily Amount used: 1gm Age of first use: 17 Date of Last Use: 06/22/18 Family Disease History - Family Disease History Family Disease History: Other: Father (alcoholic) Admission Physical Exam [facility] - Vital Signs Vital Signs: Vital Signs - 24 hr 06/21/18 23:35 Temperature 97.4 F L Pulse Rate 103 H Respiratory 20 Rate Blood Pressure 148/90 Screened but not Admitted - Documentation of Visit Left Prior to Completion of Assessment: Yes Insurance Authorization Denied: No Patient Does Not Meet Criteria for Admission: No Level of Care Recommended at this Time: Other Additional Information/Explanation: Patient aborted admission before she was screened by the nurse practitioner to be admitted. Unable to assess if patient was medically clear because she left. [facility] Breath Alcohol Content Breath Alcohol Content: 0 Urine Pregancy Test - Result Urine Test Results: Negative- NO Line Present Urine Drug Screen - Results Urine Drug Screen Results: FADI-Cocaine, OPI-Opiates, BZO-Benzodiazepines, OXY- Oxycodone
== END 2018-06-22 07:32 | disposition left against medical advice (07) | DRG 770 ==
LOC: YASAS 22:37 → Y6N 23:56
PROVIDERS: ADMIT Surgery; ATTEND Surgery
PROC: HZ2ZZZZ Detoxification Services for Substance Abuse Treatment (ICD-10-PCS; principal; 2018-06-21)
DX: F11.23 Opioid dependence with withdrawal (principal); F13.230 Sedative, hypnotic or anxiolytic dependence with withdrawal, uncomplicated; F10.230 Alcohol dependence with withdrawal, uncomplicated; F14.20 Cocaine dependence, uncomplicated; Z88.0 Allergy status to penicillin; Z18.81 Retained glass fragments; Z91.5 Personal history of self-harm

== ENCOUNTER 2022-05-02 16:45 | Inpatient (IN) | payer OTHER ==
[2022-05-02 22:17] VITALS: BMI 24.4
[2022-05-02] MEDS ORDERED: ACETAMINOPHEN 325 MG TABLET (FP) PO PRN ×2 (22:41)
[2022-05-02] MEDS ORDERED: MAGNESIUM CITRATE 300 ML BOTTLE PO PRN (22:41)
[2022-05-02] MEDS ORDERED: BISMUTH SUBSALICYLATE 524 MG/30 ML PO PRN (22:41)
[2022-05-02] MEDS ORDERED: LOPERAMIDE HCL 2 MG CAPSULE PO PRN (22:41)
[2022-05-02] MEDS ORDERED: MAGNESIUM HYDROX 2400MG/30ML ORAL SUSPENSION 30 ML CUP PO PRN (22:41)
[2022-05-02] MEDS ORDERED: IBUPROFEN 600 MG TABLET (FP) PO PRN (22:41)
[2022-05-02] MEDS ORDERED: BENZOCAINE/MENTHOL (CHLORASEPTIC ) LOZENGE MM PRN (22:41)
[2022-05-02] MEDS ORDERED: DICYCLOMINE HCL 10 MG CAPSULE PO PRN (22:41)
[2022-05-02] MEDS ORDERED: IBUPROFEN 400 MG TABLET (FP) PO PRN (22:41)
[2022-05-02] MEDS ORDERED: ONDANSETRON *ODT* 4 MG TABLET SL PRN (22:41)
[2022-05-02] MEDS ORDERED: MAG HYDROX/AL HYDROX/SIMETH 30 ML UNIT-DOSE CUP PO PRN (22:41)
[2022-05-02] MEDS ORDERED: cloNIDine HCL 0.1 MG TABLET PO PRN (22:43)
[2022-05-03] MEDS: hydrOXYzine PAMOATE 25 MG CAPSULE (FP) PO PRN ×2 (02:04→06:01)
[2022-05-03] MEDS: METHOCARBAMOL 500 MG TABLET PO PRN ×2 (02:04→17:50)
[2022-05-03] MEDS: diazePAM 5 MG TABLET PO PRN ×5 (02:05→22:41)
[2022-05-03] MEDS ORDERED: PRENATAL VITAMINS W/ FOLIC ACID TABLET (FP) PO SCH ×2 (08:00→10:00)
[2022-05-03] MEDS ORDERED: cloNIDine HCL 0.1 MG TABLET PO PRN (09:33)
[2022-05-03] MEDS ORDERED: DOXYCYCLINE HYCLATE 100 MG TABLET PO SCH ×2 (10:00)
[2022-05-03] MEDS ORDERED: methaDONE HCL 10 MG TABLET (FOR DETOX USE ONLY) PO ONE (10:00)
[2022-05-03] MEDS ORDERED: DOXYCYCLINE HYCLATE 100 MG CAPSULE PO SCH (10:00)
[2022-05-03] MEDS: PRENATAL VITAMINS W/ FOLIC ACID TABLET (FP) PO SCH (10:35)
[2022-05-03] MEDS: DOXYCYCLINE HYCLATE 100 MG TABLET PO SCH ×2 (12:22→17:48)
[2022-05-03] MEDS: NICOTINE 10 MG CARTRIDGE (INHALER) IH PRN ×2 (18:22→22:39)
[2022-05-03] MEDS: GABAPENTIN 400 MG CAPSULE PO SCH (22:16)
[2022-05-03] MEDS: THIAMINE HCL 100 MG TABLET (FP) PO SCH (22:16)
[2022-05-03] MEDS: QUEtiapine FUMARATE 100 MG TABLET (FP) PO SCH (22:16)
[2022-05-04] MEDS: diazePAM 5 MG TABLET PO PRN ×5 (06:07→22:54)
[2022-05-04] MEDS: hydrOXYzine PAMOATE 25 MG CAPSULE (FP) PO PRN (06:07)
[2022-05-04] MEDS: METHOCARBAMOL 500 MG TABLET PO PRN ×3 (06:08→22:39)
[2022-05-04] MEDS: DOXYCYCLINE HYCLATE 100 MG TABLET PO SCH ×2 (06:08→18:08)
[2022-05-04] MEDS ORDERED: methaDONE HCL 10 MG TABLET (FOR DETOX USE ONLY) ONE (09:26)
[2022-05-04] MEDS: PRENATAL VITAMINS W/ FOLIC ACID TABLET (FP) PO SCH (10:43)
[2022-05-04] MEDS: NICOTINE 10 MG CARTRIDGE (INHALER) IH PRN ×4 (10:43→22:35)
[2022-05-04] MEDS: GABAPENTIN 400 MG CAPSULE PO SCH ×2 (10:43→22:36)
[2022-05-04 12:03] LABS: HEMATOCRIT 33.9 % (32.4-45.2); HEMOGLOBIN 11.9 GM/dL (10.7-15.3); MCH 30.4 pg (25.7-33.7); MCHC 35.1 g/dl (32.0-36.0); MEAN CELL VOLUME 86.8 fl (80-96); MEAN PLT VOLUME 7.9 fl (7.5-11.1); PLATELET COUNT 290 10^3/uL (134-434); WHITE BLOOD COUNT 5.2 K/mm3 (4.0-10.0)
[2022-05-04 13:00] LABS: CALCIUM 8.9 mg/dL (8.5-10.1)
[2022-05-04 13:01] LABS: ALBUMIN 3.4 g/dl (3.4-5.0); BLOOD UREA NITROGEN 13.3 mg/dL (7-18)
[2022-05-04 13:03] LABS: HIV INTERPRETATION NEGATIVE (NEGATIVE)
[2022-05-04 13:04] LABS: CREATININE 0.6 mg/dL (0.55-1.3)
[2022-05-04 13:05] LABS: BILIRUBIN,TOTAL 0.3 mg/dL (0.2-1); TOT PROT 6.5 g/dl (6.4-8.2)
[2022-05-04] MEDS ORDERED: COLLOIDAL OATMEAL 1 BAR EACH TP PRN (18:34)
[2022-05-04] MEDS: BACITRACIN 0.9 GM PACKET TP SCH ×2 (18:57→22:36)
[2022-05-04] MEDS: FOLIC ACID 1 MG TABLET (FP) PO SCH (18:58)
[2022-05-04] MEDS: NICOTINE POLACRILEX 2 MG GUM BUC PRN (22:36)
[2022-05-04] MEDS: THIAMINE HCL 100 MG TABLET (FP) PO SCH (22:36)
[2022-05-04] MEDS: MELATONIN 5 MG TABLETS PO PRN (22:36)
[2022-05-04] MEDS: QUEtiapine FUMARATE 100 MG TABLET (FP) PO SCH (22:36)
[2022-05-05] MEDS: VITAMINS A AND D TOPICAL OINTMENT 60 GM TUBE TP SCH ×5 (00:10→23:55)
[2022-05-05] MEDS: DOXYCYCLINE HYCLATE 100 MG TABLET PO SCH (06:02)
[2022-05-05] MEDS: hydrOXYzine PAMOATE 25 MG CAPSULE (FP) PO PRN (06:02)
[2022-05-05] MEDS: diazePAM 5 MG TABLET PO PRN ×5 (06:02→23:08)
[2022-05-05] MEDS ORDERED: methaDONE HCL 10 MG TABLET (FOR DETOX USE ONLY) PO ONE (10:00)
[2022-05-05] MEDS ORDERED: AZITHROMYCIN 250 MG TABLET PO ONE (10:00)
[2022-05-05] MEDS: METHOCARBAMOL 500 MG TABLET PO PRN ×3 (10:27→23:06)
[2022-05-05] MEDS: FOLIC ACID 1 MG TABLET (FP) PO SCH (10:28)
[2022-05-05] MEDS: BACITRACIN 0.9 GM PACKET TP SCH ×2 (10:28→23:05)
[2022-05-05] MEDS: GABAPENTIN 400 MG CAPSULE PO SCH ×2 (10:28→23:05)
[2022-05-05] MEDS: PRENATAL VITAMINS W/ FOLIC ACID TABLET (FP) PO SCH (10:29)
[2022-05-05] MEDS: NICOTINE POLACRILEX 2 MG GUM BUC PRN ×2 (10:31→13:59)
[2022-05-05] MEDS: NICOTINE 10 MG CARTRIDGE (INHALER) IH PRN ×3 (10:31→18:12)
[2022-05-05] MEDS: NICOTINE POLACRILEX 4 MG GUM BUC PRN (17:03)
[2022-05-05] MEDS: THIAMINE HCL 100 MG TABLET (FP) PO SCH (23:05)
[2022-05-05] MEDS: QUEtiapine FUMARATE 100 MG TABLET (FP) PO SCH (23:05)
[2022-05-06] MEDS: VITAMINS A AND D TOPICAL OINTMENT 60 GM TUBE TP SCH ×3 (06:48→18:08)
[2022-05-06] MEDS: diazePAM 5 MG TABLET PO PRN (06:53)
[2022-05-06] MEDS: METHOCARBAMOL 500 MG TABLET PO PRN ×3 (06:53→20:10)
[2022-05-06] MEDS: NICOTINE 10 MG CARTRIDGE (INHALER) IH PRN ×5 (06:55→22:46)
[2022-05-06] MEDS ORDERED: methaDONE HCL 10 MG TABLET (FOR DETOX USE ONLY) ONE (09:27)
[2022-05-06] MEDS: BACITRACIN 0.9 GM PACKET TP SCH ×2 (10:27→22:45)
[2022-05-06] MEDS: PRENATAL VITAMINS W/ FOLIC ACID TABLET (FP) PO SCH (10:27)
[2022-05-06] MEDS: GABAPENTIN 400 MG CAPSULE PO SCH ×2 (10:28→22:45)
[2022-05-06] MEDS: FOLIC ACID 1 MG TABLET (FP) PO SCH (10:28)
[2022-05-06] MEDS: NICOTINE POLACRILEX 4 MG GUM BUC PRN ×5 (10:50→22:46)
[2022-05-06] MEDS: AZITHROMYCIN 250 MG TABLET PO SCH (13:02)
[2022-05-06] MEDS: THIAMINE HCL 100 MG TABLET (FP) PO SCH (22:45)
[2022-05-06] MEDS: QUEtiapine FUMARATE 100 MG TABLET (FP) PO SCH (22:45)
[2022-05-06] MEDS: MELATONIN 5 MG TABLETS PO PRN (22:45)
[2022-05-07] MEDS: VITAMINS A AND D TOPICAL OINTMENT 60 GM TUBE TP SCH ×5 (00:58→23:28)
[2022-05-07] MEDS ORDERED: methaDONE HCL 10 MG TABLET (FOR DETOX USE ONLY) PO ONE (10:00)
[2022-05-07] MEDS: METHOCARBAMOL 500 MG TABLET PO PRN ×3 (10:05→22:37)
[2022-05-07] MEDS: PRENATAL VITAMINS W/ FOLIC ACID TABLET (FP) PO SCH (10:05)
[2022-05-07] MEDS: NICOTINE 10 MG CARTRIDGE (INHALER) IH PRN ×4 (10:05→22:35)
[2022-05-07] MEDS: NICOTINE POLACRILEX 4 MG GUM BUC PRN ×5 (10:05→22:37)
[2022-05-07] MEDS: AZITHROMYCIN 250 MG TABLET PO SCH (10:06)
[2022-05-07] MEDS: GABAPENTIN 400 MG CAPSULE PO SCH ×2 (10:06→22:35)
[2022-05-07] MEDS: BACITRACIN 0.9 GM PACKET TP SCH ×2 (10:06→22:35)
[2022-05-07] MEDS: FOLIC ACID 1 MG TABLET (FP) PO SCH (10:06)
[2022-05-07] MEDS: THIAMINE HCL 100 MG TABLET (FP) PO SCH (22:35)
[2022-05-07] MEDS: QUEtiapine FUMARATE 100 MG TABLET (FP) PO SCH (22:35)
[2022-05-07] MEDS: MELATONIN 5 MG TABLETS PO PRN (22:35)
[2022-05-08] MEDS: NICOTINE 10 MG CARTRIDGE (INHALER) IH PRN ×2 (06:01→10:10)
[2022-05-08] MEDS: METHOCARBAMOL 500 MG TABLET PO PRN (06:02)
[2022-05-08] MEDS: VITAMINS A AND D TOPICAL OINTMENT 60 GM TUBE TP SCH (06:26)
[2022-05-08 09:01] VITALS: BP 152/76; PULSE 79; TEMP 97.1
[2022-05-08] MEDS: GABAPENTIN 400 MG CAPSULE PO SCH (09:37)
[2022-05-08] MEDS: AZITHROMYCIN 250 MG TABLET PO SCH (09:38)
[2022-05-08] MEDS: FOLIC ACID 1 MG TABLET (FP) PO SCH (09:38)
[2022-05-08] MEDS: BACITRACIN 0.9 GM PACKET TP SCH (09:39)
[2022-05-08] MEDS: PRENATAL VITAMINS W/ FOLIC ACID TABLET (FP) PO SCH (09:40)
[2022-05-08] MEDS: NICOTINE POLACRILEX 4 MG GUM BUC PRN (10:11)
== END 2022-05-08 12:02 | disposition other institution (70) | DRG 773 ==
LOC: YASAS 16:45 → Y3N 05-03 01:32
PROVIDERS: ADMIT Allergy & Immunology; ATTEND Surgery
PROC: HZ2ZZZZ Detoxification Services for Substance Abuse Treatment (ICD-10-PCS; principal; 2022-05-03)
DX: F11.23 Opioid dependence with withdrawal (principal); F10.20 Alcohol dependence, uncomplicated; F13.20 Sedative, hypnotic or anxiolytic dependence, uncomplicated; F14.20 Cocaine dependence, uncomplicated; F12.20 Cannabis dependence, uncomplicated; F17.210 Nicotine dependence, cigarettes, uncomplicated; F43.10 Post-traumatic stress disorder, unspecified; F33.9 Major depressive disorder, recurrent, unspecified; F19.24 Other psychoactive substance dependence with psychoactive substance-induced mood disorder; L02.512 Cutaneous abscess of left hand; L02.511 Cutaneous abscess of right hand; B18.2 Chronic viral hepatitis C; Z88.0 Allergy status to penicillin; Z88.1 Allergy status to other antibiotic agents
CPT/HCPCS: 36415; 80053; 81025; 85027; 86780; 87389; 93005; 93010; C9803-CS; J0735; Q0162; U0003; U0005

== ENCOUNTER 2022-05-25 19:49 | Inpatient (IN) | payer OTHER ==
[2022-05-26] MEDS ORDERED: ONDANSETRON *ODT* 4 MG TABLET SL PRN (00:08)
[2022-05-26] MEDS ORDERED: MAGNESIUM CITRATE 300 ML BOTTLE PO PRN (00:08)
[2022-05-26] MEDS ORDERED: IBUPROFEN 600 MG TABLET (FP) PO PRN (00:08)
[2022-05-26] MEDS ORDERED: cloNIDine HCL 0.1 MG TABLET PO PRN (00:08)
[2022-05-26] MEDS ORDERED: ACETAMINOPHEN 325 MG TABLET (FP) PO PRN ×2 (00:08)
[2022-05-26] MEDS ORDERED: MAG HYDROX/AL HYDROX/SIMETH 30 ML UNIT-DOSE CUP PO PRN (00:08)
[2022-05-26] MEDS ORDERED: DICYCLOMINE HCL 10 MG CAPSULE PO PRN (00:08)
[2022-05-26] MEDS ORDERED: IBUPROFEN 400 MG TABLET (FP) PO PRN (00:08)
[2022-05-26] MEDS ORDERED: methaDONE HCL 10 MG TABLET (FOR DETOX USE ONLY) PO ONE (00:08)
[2022-05-26] MEDS ORDERED: BISMUTH SUBSALICYLATE 524 MG/30 ML PO PRN (00:08)
[2022-05-26] MEDS ORDERED: LOPERAMIDE HCL 2 MG CAPSULE PO PRN (00:08)
[2022-05-26] MEDS ORDERED: BENZOCAINE/MENTHOL (CHLORASEPTIC ) LOZENGE MM PRN (00:08)
[2022-05-26] MEDS ORDERED: methaDONE HCL 10 MG TABLET (FOR DETOX USE ONLY) ONE (00:39)
[2022-05-26] MEDS ORDERED: diazePAM 5 MG TABLET ONE (00:39)
[2022-05-26] MEDS: diazePAM 5 MG TABLET PO PRN ×2 (01:03→14:02)
[2022-05-26] MEDS: NICOTINE 10 MG CARTRIDGE (INHALER) IH PRN ×6 (01:20→22:40)
[2022-05-26] MEDS: METHOCARBAMOL 500 MG TABLET PO PRN ×3 (01:24→18:03)
[2022-05-26 01:38] VITALS: BMI 25.0
[2022-05-26] MEDS: diazePAM 5 MG TABLET PO SCH ×4 (06:21→22:39)
[2022-05-26] MEDS: NICOTINE 21 MG/24 HOURS TOPICAL PATCH TD SCH (10:30)
[2022-05-26] MEDS: PRENATAL VITAMINS W/ FOLIC ACID TABLET (FP) PO SCH (10:30)
[2022-05-26] MEDS: propRANOLol HCL 10 MG TABLET PO SCH ×2 (11:51→22:40)
[2022-05-26] MEDS: GABAPENTIN 400 MG CAPSULE PO SCH ×2 (14:01→22:40)
[2022-05-26] MEDS: QUEtiapine FUMARATE 100 MG TABLET (FP) PO SCH (22:38)
[2022-05-26] MEDS: THIAMINE HCL 100 MG TABLET (FP) PO SCH (22:39)
[2022-05-26] MEDS: MELATONIN 5 MG TABLETS PO SCH (22:39)
[2022-05-27] MEDS: diazePAM 5 MG TABLET PO SCH ×3 (05:55→22:43)
[2022-05-27] MEDS: GABAPENTIN 400 MG CAPSULE PO SCH ×3 (05:55→22:42)
[2022-05-27] MEDS: METHOCARBAMOL 500 MG TABLET PO PRN ×2 (05:56→18:10)
[2022-05-27] MEDS: NICOTINE 10 MG CARTRIDGE (INHALER) IH PRN ×4 (05:57→22:44)
[2022-05-27] MEDS ORDERED: methaDONE HCL 10 MG TABLET (FOR DETOX USE ONLY) ONE (08:58)
[2022-05-27 10:31] LABS: HEMATOCRIT 36.1 % (32.4-45.2); MCH 29.2 pg (25.7-33.7); MCHC 33.3 g/dl (32.0-36.0); MEAN CELL VOLUME 87.9 fl (80-96); MEAN PLT VOLUME 8.2 fl (7.5-11.1); PLATELET COUNT 321 10^3/uL (134-434); RBC 4.11 M/mm3 (3.60-5.2); RDW 12.8 % (11.6-15.6); WHITE BLOOD COUNT 5.6 K/mm3 (4.0-10.0)
[2022-05-27 10:37] LABS: ALBUMIN 3.6 g/dl (3.4-5.0); BLOOD UREA NITROGEN 6.5 mg/dL (7-18)
[2022-05-27 10:40] LABS: CREATININE 0.7 mg/dL (0.55-1.3)
[2022-05-27 10:42] LABS: BILIRUBIN,TOTAL 0.2 mg/dL (0.2-1); TOT PROT 6.8 g/dl (6.4-8.2)
[2022-05-27] MEDS: PRENATAL VITAMINS W/ FOLIC ACID TABLET (FP) PO SCH (11:00)
[2022-05-27] MEDS: diazePAM 5 MG TABLET PO PRN ×2 (11:01→18:09)
[2022-05-27] MEDS: propRANOLol HCL 10 MG TABLET PO SCH ×2 (11:03→22:48)
[2022-05-27] MEDS: NICOTINE 21 MG/24 HOURS TOPICAL PATCH TD SCH (11:04)
[2022-05-27] MEDS: QUEtiapine FUMARATE 100 MG TABLET (FP) PO SCH (22:42)
[2022-05-27] MEDS: MELATONIN 5 MG TABLETS PO SCH (22:42)
[2022-05-27] MEDS: THIAMINE HCL 100 MG TABLET (FP) PO SCH (22:42)
[2022-05-28] MEDS: GABAPENTIN 400 MG CAPSULE PO SCH ×3 (05:37→22:27)
[2022-05-28] MEDS: diazePAM 5 MG TABLET PO SCH ×2 (05:37→18:08)
[2022-05-28] MEDS: METHOCARBAMOL 500 MG TABLET PO PRN ×3 (05:37→18:08)
[2022-05-28] MEDS ORDERED: methaDONE HCL 10 MG TABLET (FOR DETOX USE ONLY) PO ONE (10:00)
[2022-05-28] MEDS: propRANOLol HCL 10 MG TABLET PO SCH ×2 (10:26→22:27)
[2022-05-28] MEDS: NICOTINE 21 MG/24 HOURS TOPICAL PATCH TD SCH (10:26)
[2022-05-28] MEDS: PRENATAL VITAMINS W/ FOLIC ACID TABLET (FP) PO SCH (10:26)
[2022-05-28] MEDS: diazePAM 5 MG TABLET PO PRN ×3 (10:29→22:29)
[2022-05-28] MEDS: NICOTINE 10 MG CARTRIDGE (INHALER) IH PRN ×4 (10:31→22:31)
[2022-05-28] MEDS ORDERED: COLLOIDAL OATMEAL 1 BAR EACH TP PRN (11:49)
[2022-05-28] MEDS: NICOTINE POLACRILEX 4 MG GUM BUC PRN ×3 (12:22→20:53)
[2022-05-28] MEDS: BACITRACIN 0.9 GM PACKET TP SCH (12:24)
[2022-05-28] MEDS: MINERAL OIL/PETROLAT/WATER TOPICAL CREAM 113 GM JAR TP SCH (14:46)
[2022-05-28] MEDS: MAGNESIUM HYDROX 2400MG/30ML ORAL SUSPENSION 30 ML CUP PO PRN (18:09)
[2022-05-28] MEDS: QUEtiapine FUMARATE 100 MG TABLET (FP) PO SCH (22:27)
[2022-05-28] MEDS: THIAMINE HCL 100 MG TABLET (FP) PO SCH (22:27)
[2022-05-28] MEDS: MELATONIN 5 MG TABLETS PO SCH (22:27)
[2022-05-29] MEDS: GABAPENTIN 400 MG CAPSULE PO SCH ×3 (05:48→22:48)
[2022-05-29] MEDS: NICOTINE 10 MG CARTRIDGE (INHALER) IH PRN ×5 (05:49→22:50)
[2022-05-29] MEDS: METHOCARBAMOL 500 MG TABLET PO PRN ×3 (05:50→18:18)
[2022-05-29] MEDS ORDERED: diazePAM 5 MG TABLET PO ONE (06:00)
[2022-05-29] MEDS: NICOTINE POLACRILEX 4 MG GUM BUC PRN ×5 (08:55→21:09)
[2022-05-29] MEDS ORDERED: methaDONE HCL 10 MG TABLET (FOR DETOX USE ONLY) ONE (09:21)
[2022-05-29] MEDS: NICOTINE 21 MG/24 HOURS TOPICAL PATCH TD SCH (10:39)
[2022-05-29] MEDS: BACITRACIN 0.9 GM PACKET TP SCH (10:41)
[2022-05-29] MEDS: PRENATAL VITAMINS W/ FOLIC ACID TABLET (FP) PO SCH (10:41)
[2022-05-29] MEDS: propRANOLol HCL 10 MG TABLET PO SCH ×2 (10:42→22:49)
[2022-05-29] MEDS: HYDROCORTISONE 1% TOPICAL CREAM 30 GM TUBE TP SCH (10:42)
[2022-05-29] MEDS: diazePAM 5 MG TABLET PO PRN ×3 (10:43→22:52)
[2022-05-29] MEDS: MINERAL OIL/PETROLAT/WATER TOPICAL CREAM 113 GM JAR TP SCH (13:28)
[2022-05-29] MEDS: hydrOXYzine PAMOATE 25 MG CAPSULE (FP) PO PRN ×2 (17:14→22:48)
[2022-05-29] MEDS: QUEtiapine FUMARATE 100 MG TABLET (FP) PO SCH (22:48)
[2022-05-29] MEDS: THIAMINE HCL 100 MG TABLET (FP) PO SCH (22:49)
[2022-05-29] MEDS: MELATONIN 5 MG TABLETS PO SCH (22:49)
[2022-05-30] MEDS: GABAPENTIN 400 MG CAPSULE PO SCH ×3 (05:36→22:50)
[2022-05-30] MEDS: METHOCARBAMOL 500 MG TABLET PO PRN ×3 (05:38→17:20)
[2022-05-30] MEDS: hydrOXYzine PAMOATE 25 MG CAPSULE (FP) PO PRN ×3 (05:38→17:20)
[2022-05-30] MEDS: NICOTINE 10 MG CARTRIDGE (INHALER) IH PRN ×6 (05:39→22:52)
[2022-05-30] MEDS ORDERED: methaDONE HCL 10 MG TABLET (FOR DETOX USE ONLY) PO ONE (10:00)
[2022-05-30] MEDS: PRENATAL VITAMINS W/ FOLIC ACID TABLET (FP) PO SCH (10:30)
[2022-05-30] MEDS: BACITRACIN 0.9 GM PACKET TP SCH (10:31)
[2022-05-30] MEDS: MAGNESIUM HYDROX 2400MG/30ML ORAL SUSPENSION 30 ML CUP PO PRN (10:33)
[2022-05-30] MEDS: propRANOLol HCL 10 MG TABLET PO SCH ×2 (10:33→22:51)
[2022-05-30] MEDS: NICOTINE POLACRILEX 4 MG GUM BUC PRN ×3 (10:35→17:19)
[2022-05-30] MEDS: MINERAL OIL/PETROLAT/WATER TOPICAL CREAM 113 GM JAR TP SCH (10:35)
[2022-05-30] MEDS: NICOTINE 21 MG/24 HOURS TOPICAL PATCH TD SCH (11:16)
[2022-05-30] MEDS: HYDROCORTISONE 1% TOPICAL CREAM 30 GM TUBE TP SCH (11:17)
[2022-05-30] MEDS: QUEtiapine FUMARATE 100 MG TABLET (FP) PO SCH (22:50)
[2022-05-30] MEDS: THIAMINE HCL 100 MG TABLET (FP) PO SCH (22:51)
[2022-05-30] MEDS: MELATONIN 5 MG TABLETS PO SCH (22:51)
[2022-05-31] MEDS: hydrOXYzine PAMOATE 25 MG CAPSULE (FP) PO PRN ×4 (05:38→22:19)
[2022-05-31] MEDS: GABAPENTIN 400 MG CAPSULE PO SCH ×3 (05:38→22:19)
[2022-05-31] MEDS: METHOCARBAMOL 500 MG TABLET PO PRN ×3 (05:38→17:37)
[2022-05-31] MEDS: NICOTINE 10 MG CARTRIDGE (INHALER) IH PRN ×5 (05:40→22:19)
[2022-05-31] MEDS: NICOTINE POLACRILEX 4 MG GUM BUC PRN ×4 (05:41→19:50)
[2022-05-31] MEDS: propRANOLol HCL 10 MG TABLET PO SCH ×2 (10:31→22:19)
[2022-05-31] MEDS: HYDROCORTISONE 1% TOPICAL CREAM 30 GM TUBE TP SCH (10:31)
[2022-05-31] MEDS: PRENATAL VITAMINS W/ FOLIC ACID TABLET (FP) PO SCH (10:31)
[2022-05-31] MEDS: NICOTINE 21 MG/24 HOURS TOPICAL PATCH TD SCH (10:32)
[2022-05-31] MEDS: BACITRACIN 0.9 GM PACKET TP SCH (10:32)
[2022-05-31] MEDS: MINERAL OIL/PETROLAT/WATER TOPICAL CREAM 113 GM JAR TP SCH (11:25)
[2022-05-31] MEDS: QUEtiapine FUMARATE 100 MG TABLET (FP) PO SCH (22:19)
[2022-05-31] MEDS: MELATONIN 5 MG TABLETS PO SCH (22:19)
[2022-05-31] MEDS: THIAMINE HCL 100 MG TABLET (FP) PO SCH (22:19)
[2022-06-01] MEDS: GABAPENTIN 400 MG CAPSULE PO SCH (05:22)
[2022-06-01] MEDS: NICOTINE 10 MG CARTRIDGE (INHALER) IH PRN ×2 (05:23→09:49)
[2022-06-01] MEDS: NICOTINE POLACRILEX 4 MG GUM BUC PRN (08:35)
[2022-06-01 09:58] VITALS: BP 123/72; PULSE 85; TEMP 97.4
[2022-06-01] MEDS: HYDROCORTISONE 1% TOPICAL CREAM 30 GM TUBE TP SCH (10:01)
[2022-06-01] MEDS: propRANOLol HCL 10 MG TABLET PO SCH (10:01)
[2022-06-01] MEDS: PRENATAL VITAMINS W/ FOLIC ACID TABLET (FP) PO SCH (10:01)
[2022-06-01] MEDS: NICOTINE 21 MG/24 HOURS TOPICAL PATCH TD SCH (10:01)
[2022-06-01] MEDS: MINERAL OIL/PETROLAT/WATER TOPICAL CREAM 113 GM JAR TP SCH (10:02)
== END 2022-06-01 12:30 | disposition home or self-care (01) | DRG 773 ==
LOC: YASAS 19:49 → Y6N 23:48
PROVIDERS: ADMIT Allergy & Immunology; ATTEND Surgery
PROC: HZ2ZZZZ Detoxification Services for Substance Abuse Treatment (ICD-10-PCS; principal; 2022-05-25)
DX: F11.23 Opioid dependence with withdrawal (principal); F13.20 Sedative, hypnotic or anxiolytic dependence, uncomplicated; F14.20 Cocaine dependence, uncomplicated; F17.210 Nicotine dependence, cigarettes, uncomplicated; F33.1 Major depressive disorder, recurrent, moderate; F19.282 Other psychoactive substance dependence with psychoactive substance-induced sleep disorder; F19.24 Other psychoactive substance dependence with psychoactive substance-induced mood disorder; F41.8 Other specified anxiety disorders; F43.10 Post-traumatic stress disorder, unspecified; D68.8 Other specified coagulation defects; D64.9 Anemia, unspecified; E55.9 Vitamin D deficiency, unspecified; B18.2 Chronic viral hepatitis C; L85.3 Xerosis cutis; Z88.0 Allergy status to penicillin
CPT/HCPCS: 36415; 80053; 85027; 86780; C9803-CS; Q0162; U0003; U0005

== ENCOUNTER 2023-09-11 21:50 | Inpatient (IN) | payer OTHER ==
[2023-09-11 22:57] VITALS: BMI 25.9
[2023-09-12] MEDS ORDERED: traZODone HCL 50 MG TABLET (FP) PO ONE (00:46)
[2023-09-12] MEDS ORDERED: ACETAMINOPHEN 325 MG TABLET (FP) PO PRN (00:47)
[2023-09-12] MEDS ORDERED: BISMUTH SUBSALICYLATE 524 MG/30 ML PO PRN (00:47)
[2023-09-12] MEDS ORDERED: NALOXONE HCL 0.4 MG/ML VIAL IM PRN (00:47)
[2023-09-12] MEDS ORDERED: MAG HYDROX/AL HYDROX/SIMETH 30 ML UNIT-DOSE CUP PO PRN (00:47)
[2023-09-12] MEDS ORDERED: DICYCLOMINE HCL 10 MG CAPSULE PO PRN (00:47)
[2023-09-12] MEDS ORDERED: NALOXONE HCL (KLOXXADO) 8 MG SPRAY NS PRN (00:47)
[2023-09-12] MEDS ORDERED: BENZONATATE 200 MG CAPSULE PO PRN (00:47)
[2023-09-12] MEDS ORDERED: BENZOCAINE/MENTHOL (CHLORASEPTIC ) LOZENGE MM PRN (00:47)
[2023-09-12] MEDS ORDERED: guaiFENesin 600 MG TABLET.ER (FP) PO PRN (00:47)
[2023-09-12] MEDS ORDERED: LOPERAMIDE HCL 2 MG CAPSULE PO PRN (00:47)
[2023-09-12] MEDS ORDERED: IBUPROFEN 400 MG TABLET (FP) PO PRN (00:47)
[2023-09-12] MEDS ORDERED: POLYETHYLENE GLYCOL (HEALTHYLAX) 3350 17 GM PACKET PO PRN (00:47)
[2023-09-12] MEDS ORDERED: IBUPROFEN 600 MG TABLET (FP) PO PRN (00:47)
[2023-09-12] MEDS ORDERED: MAGNESIUM HYDROX 2400MG/30ML ORAL SUSPENSION 30 ML CUP PO PRN (00:47)
[2023-09-12] MEDS ORDERED: MELATONIN 5 MG TABLETS ONE (01:17)
[2023-09-12] MEDS ORDERED: hydrOXYzine PAMOATE 25 MG CAPSULE (FP) PO ONE (01:18)
[2023-09-12] MEDS ORDERED: clonazePAM 0.25 MG ODT TABLETS SL PRN (01:18)
[2023-09-12] MEDS ORDERED: NICOTINE POLACRILEX 2 MG GUM ONE (01:29)
[2023-09-12] MEDS: hydrOXYzine PAMOATE 25 MG CAPSULE (FP) PO PRN ×2 (02:09→12:26)
[2023-09-12] MEDS: METHOCARBAMOL 500 MG TABLET PO PRN ×3 (02:38→17:53)
[2023-09-12] MEDS ORDERED: clonazePAM 0.5 MG TABLET PO PRN (06:51)
[2023-09-12] MEDS: ONDANSETRON *ODT* 4 MG TABLET SL PRN ×2 (09:13→17:53)
[2023-09-12] MEDS ORDERED: cloNIDine HCL 0.1 MG TABLET PO ONE (09:19)
[2023-09-12] MEDS ORDERED: BUPRENORPHINE HCL 150 MCG, BUPRENORPHINE HCL 75 MCG BC PRN (09:19)
[2023-09-12] MEDS ORDERED: BUPRENORPHINE HCL 150 MCG, BUPRENORPHINE HCL 75 MCG BC ONE ×2 (09:19→12:45)
[2023-09-12] MEDS ORDERED: SULFAMETHOXAZOLE/TRIMETHOPRIM 800MG/160MG D.S. TABLET PO SCH (10:00)
[2023-09-12] MEDS: diazePAM 5 MG TABLET PO PRN ×3 (10:06→21:33)
[2023-09-12] MEDS: PRENATAL VITAMINS W/ FOLIC ACID TABLET (FP) PO SCH (10:06)
[2023-09-12] MEDS: NICOTINE 21 MG/24 HOURS TOPICAL PATCH TD SCH (10:06)
[2023-09-12] MEDS: NICOTINE POLACRILEX 4 MG GUM BUC PRN ×5 (12:28→22:09)
[2023-09-12] MEDS: NEOMYCIN/POLYMYXIN/BACITRACIN (TRIPLE ANTIBIOTIC) 28 GM OINTMENT TP SCH ×2 (13:31→22:09)
[2023-09-12] MEDS: GABAPENTIN 400 MG CAPSULE PO SCH ×2 (14:19→22:08)
[2023-09-12] MEDS: cloNIDine HCL 0.1 MG TABLET PO PRN (17:53)
[2023-09-12] MEDS: MELATONIN 5 MG TABLETS PO SCH (22:08)
[2023-09-12] MEDS: QUEtiapine FUMARATE 50 MG TABLET PO SCH (22:08)
[2023-09-12] MEDS: SULFAMETHOXAZOLE/TRIMETHOPRIM 800MG/160MG D.S. TABLET PO SCH (22:08)
[2023-09-12] MEDS: THIAMINE HCL 100 MG TABLET (FP) PO SCH (22:08)
[2023-09-13] MEDS ORDERED: BUPRENORPHINE HCL 150 MCG, BUPRENORPHINE HCL 75 MCG BC PRN
[2023-09-13] MEDS: GABAPENTIN 400 MG CAPSULE PO SCH ×3 (05:23→22:15)
[2023-09-13] MEDS: BUPRENORPHINE HCL 150 MCG, BUPRENORPHINE HCL 75 MCG BC SCH ×2 (05:27→17:16)
[2023-09-13] MEDS: METHOCARBAMOL 500 MG TABLET PO PRN ×3 (05:28→20:35)
[2023-09-13] MEDS: NICOTINE POLACRILEX 4 MG GUM BUC PRN ×6 (05:29→22:16)
[2023-09-13] MEDS: diazePAM 5 MG TABLET PO PRN ×3 (06:22→18:40)
[2023-09-13] MEDS: ONDANSETRON *ODT* 4 MG TABLET SL PRN (08:34)
[2023-09-13] MEDS: NEOMYCIN/POLYMYXIN/BACITRACIN (TRIPLE ANTIBIOTIC) 28 GM OINTMENT TP SCH ×2 (09:42→22:15)
[2023-09-13] MEDS: SULFAMETHOXAZOLE/TRIMETHOPRIM 800MG/160MG D.S. TABLET PO SCH ×2 (09:42→22:15)
[2023-09-13] MEDS: NICOTINE 21 MG/24 HOURS TOPICAL PATCH TD SCH (09:42)
[2023-09-13] MEDS: cloNIDine HCL 0.1 MG TABLET PO PRN (09:42)
[2023-09-13] MEDS: PRENATAL VITAMINS W/ FOLIC ACID TABLET (FP) PO SCH (09:42)
[2023-09-13 15:30] LABS: EPI CELLS >36 /uL (0-25.1); HYALINE CASTS 26 /uL (0-3.1); URINE APPEARANCE TURBID; URINE BACTERIA 6641 /uL (0-1359); URINE BILIRUBIN 1+ (NEGATIVE); URINE COLOR DK YELLOW; URINE GLUCOSE (UA) NEGATIVE (NEGATIVE); URINE KETONE TRACE (NEGATIVE); URINE LEUK ESTERASE TRACE (NEGATIVE); URINE NITRITE NEGATIVE (NEGATIVE); URINE PROTEIN 1+ (NEGATIVE); URINE RBC 8 /uL (0-23.9); URINE WBC 175 /uL (0-25.8)
[2023-09-13 15:49] LABS: YEAST PRESENT (NEGATIVE)
[2023-09-13] MEDS: QUEtiapine FUMARATE 50 MG TABLET PO SCH (22:15)
[2023-09-13] MEDS: THIAMINE HCL 100 MG TABLET (FP) PO SCH (22:15)
[2023-09-13] MEDS: MELATONIN 5 MG TABLETS PO SCH (22:15)
[2023-09-14] MEDS: METHOCARBAMOL 500 MG TABLET PO PRN ×3 (05:25→22:15)
[2023-09-14] MEDS: NICOTINE POLACRILEX 4 MG GUM BUC PRN ×4 (05:26→17:16)
[2023-09-14] MEDS: BUPRENORPHINE HCL 450 MCG FILM BC SCH ×2 (05:26→17:12)
[2023-09-14] MEDS: GABAPENTIN 400 MG CAPSULE PO SCH ×3 (05:26→22:15)
[2023-09-14] MEDS: diazePAM 5 MG TABLET PO PRN (07:33)
[2023-09-14] MEDS: PRENATAL VITAMINS W/ FOLIC ACID TABLET (FP) PO SCH (10:18)
[2023-09-14] MEDS: SULFAMETHOXAZOLE/TRIMETHOPRIM 800MG/160MG D.S. TABLET PO SCH ×2 (10:18→22:15)
[2023-09-14] MEDS: NICOTINE 21 MG/24 HOURS TOPICAL PATCH TD SCH (10:19)
[2023-09-14] MEDS: NEOMYCIN/POLYMYXIN/BACITRACIN (TRIPLE ANTIBIOTIC) 28 GM OINTMENT TP SCH ×2 (10:19→23:00)
[2023-09-14] MEDS ORDERED: diazePAM 5 MG TABLET PO PRN (11:07)
[2023-09-14] MEDS: ONDANSETRON *ODT* 4 MG TABLET SL PRN (12:27)
[2023-09-14] MEDS: cloNIDine HCL 0.1 MG TABLET PO PRN (12:37)
[2023-09-14] MEDS: clonazePAM 0.5 MG ODT TABLETS SL PRN (17:15)
[2023-09-14] MEDS: MELATONIN 5 MG TABLETS PO SCH (22:15)
[2023-09-14] MEDS: THIAMINE HCL 100 MG TABLET (FP) PO SCH (22:16)
[2023-09-14] MEDS: QUEtiapine FUMARATE 50 MG TABLET PO SCH (22:16)
[2023-09-15] MEDS: METHOCARBAMOL 500 MG TABLET PO PRN ×3 (05:39→19:22)
[2023-09-15] MEDS: BUPRENORPHINE/NALOXONE 4 MG/1 MG FILM PACKET SL SCH ×2 (05:39→17:05)
[2023-09-15] MEDS: NICOTINE POLACRILEX 4 MG GUM BUC PRN ×5 (05:39→19:19)
[2023-09-15] MEDS: GABAPENTIN 400 MG CAPSULE PO SCH ×3 (05:41→22:06)
[2023-09-15] MEDS: clonazePAM 0.5 MG ODT TABLETS SL PRN ×2 (09:02→17:07)
[2023-09-15] MEDS: SULFAMETHOXAZOLE/TRIMETHOPRIM 800MG/160MG D.S. TABLET PO SCH ×2 (10:01→22:05)
[2023-09-15] MEDS: PRENATAL VITAMINS W/ FOLIC ACID TABLET (FP) PO SCH (10:01)
[2023-09-15] MEDS: NICOTINE 21 MG/24 HOURS TOPICAL PATCH TD SCH (10:51)
[2023-09-15] MEDS: NEOMYCIN/POLYMYXIN/BACITRACIN (TRIPLE ANTIBIOTIC) 28 GM OINTMENT TP SCH ×2 (10:52→22:49)
[2023-09-15] MEDS: cloNIDine HCL 0.1 MG TABLET PO PRN ×2 (14:45→22:07)
[2023-09-15] MEDS: MELATONIN 5 MG TABLETS PO SCH (22:05)
[2023-09-15] MEDS: QUEtiapine FUMARATE 50 MG TABLET PO SCH (22:06)
[2023-09-15] MEDS: THIAMINE HCL 100 MG TABLET (FP) PO SCH (22:06)
[2023-09-16] MEDS: METHOCARBAMOL 500 MG TABLET PO PRN ×2 (05:46→12:31)
[2023-09-16] MEDS: GABAPENTIN 400 MG CAPSULE PO SCH ×3 (05:46→22:08)
[2023-09-16] MEDS ORDERED: BUPRENORPHINE/NALOXONE 8 MG/2 MG FILM PACKET SL ONE (06:00)
[2023-09-16] MEDS: PRENATAL VITAMINS W/ FOLIC ACID TABLET (FP) PO SCH (10:04)
[2023-09-16] MEDS: SULFAMETHOXAZOLE/TRIMETHOPRIM 800MG/160MG D.S. TABLET PO SCH ×2 (10:04→22:07)
[2023-09-16] MEDS: NEOMYCIN/POLYMYXIN/BACITRACIN (TRIPLE ANTIBIOTIC) 28 GM OINTMENT TP SCH ×2 (10:04→22:08)
[2023-09-16] MEDS: NICOTINE 21 MG/24 HOURS TOPICAL PATCH TD SCH (10:05)
[2023-09-16] MEDS: clonazePAM 0.5 MG ODT TABLETS SL PRN ×2 (10:07→17:14)
[2023-09-16] MEDS: NICOTINE POLACRILEX 4 MG GUM BUC PRN ×2 (11:29→17:15)
[2023-09-16] MEDS: MELATONIN 5 MG TABLETS PO SCH (22:07)
[2023-09-16] MEDS: THIAMINE HCL 100 MG TABLET (FP) PO SCH (22:08)
[2023-09-16] MEDS: QUEtiapine FUMARATE 50 MG TABLET PO SCH (22:08)
[2023-09-17] MEDS: GABAPENTIN 400 MG CAPSULE PO SCH (05:23)
[2023-09-17] MEDS: clonazePAM 0.5 MG ODT TABLETS SL PRN (05:23)
[2023-09-17] MEDS: METHOCARBAMOL 500 MG TABLET PO PRN (07:28)
[2023-09-17] MEDS: NICOTINE 21 MG/24 HOURS TOPICAL PATCH TD SCH (09:04)
[2023-09-17] MEDS: SULFAMETHOXAZOLE/TRIMETHOPRIM 800MG/160MG D.S. TABLET PO SCH (09:04)
[2023-09-17] MEDS: hydrOXYzine PAMOATE 25 MG CAPSULE (FP) PO PRN (09:05)
[2023-09-17] MEDS: NEOMYCIN/POLYMYXIN/BACITRACIN (TRIPLE ANTIBIOTIC) 28 GM OINTMENT TP SCH (09:05)
[2023-09-17] MEDS: PRENATAL VITAMINS W/ FOLIC ACID TABLET (FP) PO SCH (09:05)
[2023-09-17 09:16] VITALS: BP 146/85; PULSE 93; RESP 16; TEMP 97.7
== END 2023-09-17 09:08 | disposition other institution (70) | DRG 773 ==
LOC: YASAS 21:50 → Y3N 09-12 01:29
PROVIDERS: ADMIT Allergy & Immunology; ATTEND Surgery
PROC: HZ2ZZZZ Detoxification Services for Substance Abuse Treatment (ICD-10-PCS; principal; 2023-09-12)
DX: F11.23 Opioid dependence with withdrawal (principal); F10.230 Alcohol dependence with withdrawal, uncomplicated; F14.20 Cocaine dependence, uncomplicated; F17.210 Nicotine dependence, cigarettes, uncomplicated; F41.8 Other specified anxiety disorders; L02.414 Cutaneous abscess of left upper limb; L02.413 Cutaneous abscess of right upper limb; D68.8 Other specified coagulation defects; Z86.79 Personal history of other diseases of the circulatory system; Z86.19 Personal history of other infectious and parasitic diseases; Z88.0 Allergy status to penicillin; Z88.1 Allergy status to other antibiotic agents; Z88.2 Allergy status to sulfonamides
CPT/HCPCS: 71046-TC-FY; 81003; 81025; 87635; 93005; 93010; Q0162